=== PATIENT | male | born 1995 | race Caucasian/White ===

== ENCOUNTER 2017-03-22 23:05 | Emergency (ER) | payer BC, MEDICAID ==
[~2017-03-22] VITALS: Ht 172.7 cm; Wt 61.2 kg
[2017-03-22] MEDS ORDERED: REMICADE10 MG IV (23:11)
[2017-03-22] MEDS ORDERED: Hydrogen Peroxide 473ml Bottle TOPIC ONE ×2 (23:17→23:30)
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
[2017-03-22 23:20] VITALS: BP 138/94
[2017-03-23 00:06] VITALS: BP 138/94
[2017-03-23] MEDS ORDERED: Bacitracin Oint UD TOPIC ONE ×3 (00:15)
--- NOTE | 2017-03-23 16:26 | Diagnostic Imaging Report ---
Indication: TRAUMA, pain, possible foreign body Technique: 3 views left hand Comparison: none Findings: No acute fractures. No dislocations. Joint spaces are preserved. Impression: Negative This agrees with the preliminary interpretation provided by the emergency room physician
== END 2017-03-23 00:06 | disposition home or self-care (01) ==
LOC: EMR 23:22
DX: S61.432A Puncture wound without foreign body of left hand, initial encounter (principal); W25.XXXA Contact with sharp glass, initial encounter; Y92.009 Unspecified place in unspecified non-institutional (private) residence as the place of occurrence of the external cause
CPT/HCPCS: 99283

== ENCOUNTER 2017-07-14 14:42 | Emergency (ER) | payer BC, MEDICAID ==
[~2017-07-14] VITALS: Ht 172.7 cm; Wt 61.2 kg
[~2017-07-14 14:42] MED LIST: REMICADE10 MG IV
[2017-07-14] MEDS ORDERED: HYDROcodone/Acetamin 7.5/325 tab ORAL ONE (15:00)
--- NOTE | 2017-07-14 15:19 | Emergency Room Report ---
History of Present Illness General Chief Complaint: Lower Extremity Injury Source: Patient, Medical Record Present Illness HPI 21-year-old male presents to the emergency department complaining of 6 out of 10 in severity right localized knee pain to the anterior aspect since yesterday. Patient reports that he knocked his knee into another player's knee while playing basketball. Patient reports pain with flexion of the knee and weightbearing. He denies previous injury to this extremity he reports some swelling. Patient reports that he attempted to use some tumor echo without any relief. Denies numbness tingling or loss of sensation or gross motor movements of the extremities, incontinence of bowel or bladder. Denies CP, Palpitations, LOC, AMS, dizziness, Changes in Vision, Sensation, paresthesias, or a sudden severe headache. Allergies: Coded Allergies: No Known Allergies (Unverified , 03/22/17) Patient History Past Medical History: see triage record Past Surgical History: none Pertinent Family History: none Reviewed Nursing Documentation: PMH: Agreed, PSxH: Agreed Nursing Documentation-PMH Past Medical History: No History, Except For Hx Gastrointestinal Problems: Yes - Crohns Review of Systems All Other Systems: negative except mentioned in HPI Physical Exam Vital Signs Date Time Temp Pulse Resp B/P (MAP) Pulse Ox O2 Delivery O2 Flow Rate FiO2 07/14/17 14:46 98.0 87 15 129/68 96 Room Air 98.1 Sp02 EP Interpretation: reviewed, normal General Appearance: alert, GCS 15, non-toxic, mild distress Head: normocephalic, atraumatic ENT: hearing grossly normal, normal voice Neck: full range of motion Respiratory: lungs clear, normal breath sounds, speaking full sentences Cardiovascular #1: regular rate, rhythm, no edema, normal capillary refill Musculoskeletal: back normal, normal range of motion, other - compensatory gait , tender - TTP to the anterior right knee, no obvious deformity, no increased laxity of the joint, negative anterior drawer sign. mild anterior swelling. FROM , no clicking. Neurologic: alert, oriented x3, responsive, motor strength/tone normal, sensory intact, speech normal, grossly normal Psychiatric: judgement/insight normal Skin: normal color, no rash, warm/dry, well hydrated Medical Decision Making PA Attestation Dr. Langford is my supervising Physician whom patient management has been discussed with. Diagnostic Impression: Primary Impression: Contusion of knee, right Qualified Codes: S80.01XA - Contusion of right knee, initial encounter Additional Impression: Knee pain, acute Qualified Codes: M25.561 - Pain in right knee ER Course 21-year-old male presents to the emergency department complaining of 6 out of 10 in severity right localized knee pain to the anterior aspect since yesterday. Patient reports that he knocked his knee into another player's knee while playing basketball. Patient reports pain with flexion of the knee and weightbearing. He denies previous injury to this extremity he reports some swelling. Patient reports that he attempted to use some tumor echo without any relief. Denies numbness tingling or loss of sensation or gross motor movements of the extremities, incontinence of bowel or bladder. Denies CP, Palpitations, LOC, AMS, dizziness, Changes in Vision, Sensation, paresthesias, or a sudden severe headache. Ddx considered but are not limited to Fracture, dislocation, contusion, Sprain/ Strain/Spasm, Ligamental injury just to name a few. Vital signs: are WNL, pt. is afebrile H&PE are most consistent with musculoskeletal injury will perform imaging to r/ o fractures/dislocations. ORDERS: - X-ray Right Knee 3 views - negative for fx, Dislocation, or significant soft tissue injury, per preliminary read in ED, and signed by KORIN Ricks , my supervising physician has reviewed, and agrees with my interpretation. ED INTERVENTIONS: - Akshat wrap applied by microbiology technician. Pt. remains neurovascularly intact. DISCHARGE: At this time pt. is stable for d/c to home. Will provide printed patient care instructions, and any necessary prescriptions. Care plan and follow up instructions have been discussed with the patient prior to discharge. Other X-Ray Diagnostic Results Other X-Ray Diagnostic Results : X-Ray ordered: Right Knee # of Views/Limited Vs Complete: 3 View Indication: Pain EP Interpretation: Yes PA Xray: Interpretation reviewed, by supervising MD Interpretation: no dislocation, no soft tissue swelling, no fractures Impression: No acute disease Electronically Signed by: Catherine Ricks PA-C Last Vital Signs Date Time Temp Pulse Resp B/P (MAP) Pulse Ox O2 Delivery O2 Flow Rate FiO2 07/14/17 14:46 98.0 87 15 129/68 96 Room Air 98.1 Disposition: HOME, SELF-CARE Condition: Stable Scripts Acetaminophen* (TYLENOL EXTRA STRENGTH*) 500 Mg Tablet 500 MG ORAL Q6H, #20 TAB 0 Refills Prov: Catherine Ricks 07/14/17 Patient Instructions: Knee Sprain Additional Instructions: Take medications as directed. Follow up with a Primary Care Provider in 3-5 days, even if your symptoms have resolved. --Please review list of primary care clinics, if you do not already have a primary care provider Return sooner to ED if new symptoms occur, or current symptoms become worse. - Please note that this Emergency Department Report was dictated using [employer] mixing machine operator technology software, occasionally this can lead to erroneous entry secondary to interpretation by the dictation equipment. Catherine Ricks Jul 14, 2017 15:19
[2017-07-14] MEDS ORDERED: TYLENOL EXTRA500 MG ORAL (15:21)
[2017-07-14 15:29] VITALS: BP 129/68
--- NOTE | 2017-07-14 15:50 | Diagnostic Imaging Report ---
Indications: Reason For Exam: PAIN Technique: Three views of the right knee Comparison: None Findings: No acute fractures. No dislocations. Joint spaces are preserved. No radiopaque foreign body. Normal mineralization. Impression: No acute process
== END 2017-07-14 16:00 | disposition home or self-care (01) ==
LOC: EMR 16:00
DX: S80.01XA Contusion of right knee, initial encounter (principal); W51.XXXA Accidental striking against or bumped into by another person, initial encounter; Y93.67 Activity, basketball; Y92.89 Other specified places as the place of occurrence of the external cause
CPT/HCPCS: 99283

== ENCOUNTER 2017-07-28 15:07 | Emergency (ER) | payer BC, MEDICAID ==
[~2017-07-28] VITALS: Ht 172.7 cm; Wt 61.2 kg
[~2017-07-28 15:07] MED LIST changes: +TYLENOL EXTRA500 MG ORAL
[2017-07-28] MEDS ORDERED: IBUPROFEN600 MG ORAL (16:20)
[2017-07-28 16:54] VITALS: BP 99/61
--- NOTE | 2017-07-28 17:05 | Emergency Room Report ---
History of Present Illness General Chief Complaint: Lower Extremity Injury Source: Patient, Medical Record Present Illness HPI 21-year-old male presents ED complaining of right ankle pain and swelling. States he rolled his ankle yesterday while playing basketball. Denies any other injuries. Patient states pain is throbbing, 9 out of 10, nonradiating. Unable to bear weight. No other aggravating relieving factors. Denies any other associated symptoms Allergies: Coded Allergies: No Known Allergies (Unverified , 03/22/17) Patient History Past Medical History: none Past Surgical History: none Pertinent Family History: none Social History: Denies: smoking, alcohol use, drug use Immunizations: UTD Reviewed Nursing Documentation: PMH: Agreed; PSxH: Agreed Nursing Documentation-PMH Past Medical History: No History, Except For Hx Gastrointestinal Problems: Yes - Crohns Review of Systems All Other Systems: negative except mentioned in HPI Physical Exam Vital Signs Date Time Temp Pulse Resp B/P (MAP) Pulse Ox O2 Delivery O2 Flow Rate FiO2 07/28/17 15:13 97.8 86 16 120/75 95 Room Air 97.9 Sp02 EP Interpretation: reviewed, normal General Appearance: no apparent distress, alert, GCS 15, non-toxic Head: normocephalic Eyes: bilateral eye normal inspection, bilateral eye PERRL ENT: normal ENT inspection Neck: normal inspection Respiratory: normal inspection Cardiovascular #1: normal inspection Gastrointestinal: normal inspection Rectal: deferred Genitourinary: no CVA tenderness Musculoskeletal: tender - R ankle Neurologic: alert, oriented x3, responsive, motor strength/tone normal, sensory intact, speech normal Psychiatric: normal inspection Skin: normal inspection Lymphatic: normal inspection Procedures Splinting Splinting : Consent: Verbal Pre-Made Type: XOCHITL wrap - R ankle Pre-Proc Neuro Vasc Exam: normal Post-Proc Neuro Vasc Exam: normal Patient Tolerated: Well Complications: None Medical Decision Making Diagnostic Impression: Primary Impression: Ankle sprain Qualified Codes: S93.401A - Sprain of unspecified ligament of right ankle, initial encounter ER Course Hospital Course 21-year-old M presents to ED complaining of R ankle pain s/p trip and fall Differential diagnoses include: Fracture, dislocation, sprain, contusion Clinical course Patient placed on stretcher. After initial history and physical, I ordered Xrays of R foot/ankle patient declined pain meds Xrays prelim read shows no acute fracture/dislocation. placed in xochitl wrap, given crutches Diagnosis - ankle sprain Stable and discharged to home with prescription for Motrin. apply ice, keep elevated. weight bear as tolerated. Followup with PMD. Return to ED if symptoms recur or worsen Other X-Ray Diagnostic Results Other X-Ray Diagnostic Results #1: X-Ray ordered: R ankle # of Views/Limited Vs Complete: 3 View Indication: Pain EP Interpretation: Yes Interpretation: no dislocation, no soft tissue swelling, no fractures Impression: No acute disease Electronically Signed by: Electronically signed by Jayden Mirza MD Other X-Ray Diagnostic Results #2: X-Ray ordered: R foot # of Views/Limited Vs Complete: 3 View Indication: Pain EP Interpretation: Yes Interpretation: no dislocation, no soft tissue swelling, no fractures Impression: No acute disease Electronically Signed by: Electronically signed by Jayden Mirza MD Last Vital Signs Date Time Temp Pulse Resp B/P (MAP) Pulse Ox O2 Delivery O2 Flow Rate FiO2 07/28/17 16:54 97.9 92 16 99/61 97 Room Air Status: improved Disposition: HOME, SELF-CARE Condition: Stable Scripts Ibuprofen* (MOTRIN*) 600 Mg Tablet 600 MG ORAL Q8H PRN for For Pain, #30 TAB 0 Refills Prov: JAYDEN MIRZA M.D. 07/28/17 Patient Instructions: Ankle Sprain JAYDEN MIRZA M.D. Jul 28, 2017 17:05
--- NOTE | 2017-07-28 18:23 | Diagnostic Imaging Report ---
Indication: Pain status post ports injury Technique: 3 views right foot Comparison: none Findings: No acute fractures. No dislocations. The joint spaces are preserved. Impression: Negative
--- NOTE | 2017-07-28 18:24 | Diagnostic Imaging Report ---
Indication: Pain, sports injury Technique: 3 views of the right ankle Comparison: none Findings: Soft tissue swelling overlies lateral malleolus. No acute fractures. No dislocations. The joint spaces are preserved Impression: Evidence of lateral soft tissue injury No acute bony trauma
== END 2017-07-28 16:40 | disposition home or self-care (01) ==
LOC: EMR 15:56
DX: S93.401A Sprain of unspecified ligament of right ankle, initial encounter (principal); X50.1XXA Overexertion from prolonged static or awkward postures, initial encounter; Y93.67 Activity, basketball; Y92.9 Unspecified place or not applicable
CPT/HCPCS: 99284

== ENCOUNTER 2018-08-16 21:43 | Emergency (ER) | payer BC, MEDICAID ==
[~2018-08-16] VITALS: Ht 172.7 cm; Wt 59.0 kg
[~2018-08-16 21:43] MED LIST changes: +IBUPROFEN600 MG ORAL
[2018-08-16] MEDS ORDERED: NKM (21:50)
[2018-08-16 22:02] VITALS: BP 127/82
--- NOTE | 2018-08-16 22:05 | NUR ---
ER Nurse Note: Pt came from home c/o left lower abd pain. Pt stated 11/14 sharp pain, non radiating. Pt stated pain started 08/14. Bowel sounds heard in all quadrants, last BM 08/16. No n/v/d. Pt a&ox4, VSS, no signs of distress. Pt has hx of crohn's dx. ERMD at pt side; will continue to monitor.
[2018-08-16] MEDS ORDERED: Ketorolac 30mg Inj IV ONE (22:15)
[2018-08-16] MEDS ORDERED: Isovue-300 100ml vial INJ PRN (22:15)
[2018-08-16 22:25] LABS: BASOPHILS % (AUTO) 1.2 % (0.0-2.0); EOSINOPHILS % (AUTO) 2.5 % (0.0-3.0); HEMATOCRIT 43.8 % (42.0-52.0); LYMPHOCYTES % (AUTO) 40.5 % (20.0-45.0); MEAN CORPUSCULAR VOLUME 86 FL (80-99); MONOCYTES % (AUTO) 6.9 % (1.0-10.0); NEUTROPHILS % (AUTO) 48.8 % (45.0-75.0); PLATELET COUNT 370 K/UL (150-450); RED BLOOD COUNT 5.08 M/UL (4.70-6.10); RED CELL DISTRIBUTION WIDTH 10.3 % (11.6-14.8); WHITE BLOOD COUNT 10.5 K/UL (4.8-10.8)
[2018-08-16 22:25] LABS: APPEARANCE,URINE CLEAR; BILIRUBIN, URINE NEGATIVE (NEGATIVE); COLOR,URINE PALE YELLOW; GLUCOSE, URINE (UA) NEGATIVE (NEGATIVE); KETONES,URINE NEGATIVE (NEGATIVE); LEUKOCYTE ESTERASE ,URINE NEGATIVE (NEGATIVE); NITRITE,URINE NEGATIVE (NEGATIVE); PH,URINE 6.5 (4.5-8.0); PROTEIN,URINE NEGATIVE (NEGATIVE); UROBILINOGEN,URINE NORMAL MG/DL (0.0-1.0)
[2018-08-16 22:36] LABS: ANION GAP 9 mmol/L (5-15); BLOOD UREA NITROGEN 19 mg/dL (7-18); CALCIUM 9.1 MG/DL (8.5-10.1); CARBON DIOXIDE 30 MMOL/L (21-32); CHLORIDE 102 MMOL/L (98-107); CREATININE 0.9 MG/DL (0.55-1.30); POTASSIUM 3.9 MMOL/L (3.5-5.1); SODIUM 141 MMOL/L (136-145)
[2018-08-16 22:39] LABS: ALANINE AMINOTRANSFERASE 26 U/L (12-78); ALBUMIN/GLOBULIN RATIO 0.9 (1.0-2.7); ALKALINE PHOSPHATASE 83 U/L (46-116); ASPARTATE AMINO TRANSFERASE 16 U/L (15-37); BILIRUBIN,TOTAL 0.8 MG/DL (0.2-1.0)
--- NOTE | 2018-08-16 23:38 | NUR ---
ER Nurse Note: Pt left and came back from radiology; JOANA explained results to pt and family member. Pt and family member is aware that pt needs to be admitted but is refusing. Per family member, pt has an appointment at his PMD on Monday08/21/18 and "would rather go there because he has been treated by his PMD for two years". ERMD aware.
[2018-08-16 23:50] VITALS: BP 130/84
--- NOTE | 2018-08-16 23:50 | NUR ---
ER Nurse Note: Pt left AMA. Pt is not medically cleared for discharge by ERMD. ERMD explained the risks and dangers of appendicitis, pt and family member understood and still made the decision to leave against medical advice. Instructed pt to follow up with primary care physcian as soon as possible; [facility] see [facility] now instead of waiting til Monday after discharge. Pt a&ox4, VSS. ID band removed. IV removed; site clean and bandaged. Pt left with all belongings with steady gait via own transportation.
--- NOTE | 2018-08-16 23:55 | Emergency Room Report ---
History of Present Illness General Chief Complaint: Abdominal Pain Source: Patient Present Illness HPI Patient presents with complaints of left mid abdominal pain Reports that he has history of Crohn's disease and receives injections once a month He is somewhat late with his last injection however denies any vomiting denies any diarrhea Patient also complains of a dry hacking cough ongoing for the same. Last 2 days Denies any blood in the stool There is some diffuse nonspecific abdominal discomfort as well however patient mainly holds his left flank left mid abdominal area Denies any dysuria frequency denies any trauma Allergies: Coded Allergies: No Known Allergies (Unverified , 03/22/17) Patient History Past Medical History: see triage record Pertinent Family History: none Reviewed Nursing Documentation: PMH: Agreed; PSxH: Agreed Nursing Documentation-PMH Past Medical History: No History, Except For Hx Gastrointestinal Problems: Yes - Crohns Review of Systems All Other Systems: negative except mentioned in HPI Physical Exam Vital Signs Date Time Temp Pulse Resp B/P (MAP) Pulse Ox O2 Delivery O2 Flow Rate FiO2 08/16/18 21:47 97.5 85 18 127/82 97 Room Air Sp02 EP Interpretation: reviewed, normal General Appearance: well appearing, no apparent distress Head: normocephalic, atraumatic Eyes: bilateral eye PERRL, bilateral eye EOMI ENT: hearing grossly normal, normal pharynx, TMs + canals normal, uvula midline Neck: full range of motion, supple, no meningismus, no bony tend Respiratory: lungs clear, normal breath sounds, no rhonchi, no respiratory distress, no retraction, no accessory muscle use Cardiovascular #1: normal peripheral pulses, regular rate, rhythm, no edema, no gallop, no JVD, no murmur Gastrointestinal: normal bowel sounds, non tender - On palpation however subjectively points to the left upper quadrant left flank region, soft, no mass , no organomegaly, non-distended, no guarding, no hernia, no pulsatile mass, no rebound Genitourinary: no CVA tenderness Musculoskeletal: normal inspection Neurologic: oriented x3, responsive, esthetician and manager medical spa III-XII nml as tested, motor strength/ tone normal, sensory intact Psychiatric: mood/affect normal Skin: normal color, no rash, warm/dry, palpation normal Lymphatic: normal inspection, no adenopathy Medical Decision Making Diagnostic Impression: Primary Impression: AMA ER Course With the history exam and presentation, multiple differentials considered, including but not limited to appendicitis, gastritis, cholecystitis, diverticulitis Given the patient's somewhat diffuse discomfort as well subjectively and the duration of time for the past 2 days Patient also appears somewhat uncomfortable with the discomfort CT imaging was also obtained Radiology reports enlarged appendix and concern for appendicitis Repeat evaluation reveals some discomfort around the periumbilical area continues not show any obvious rebound effect With this patient requires admission further hydration and nothing by mouth status and general surgery consultation Patient's mom has arrived at this time She was here yesterday when the patient's father was admitted with another diagnosis At this time she reports that the patient is followed at [facility] and that she would like to take him there I spent a significant amount of time discussing the emergent diagnosis, that this leads to worsening symptoms and very quickly. Patient himself is awake and alert has full decision-making capacity Patient's mom as well at bedside refusing admission at this time and reporting that they will be driving to [facility] I provided them a copy of the CAT scan report Patient again was urged to stay have observation Gen. surgery will consult however the patient and mom adamantly refusing further care at this time and following to their primary hospital site Labs Test 08/16/18 21:55 08/16/18 22:10 Urine Color Pale yellow Urine Appearance Clear Urine pH 6.5 (4.5-8.0) Urine Specific [place] 1.015 (1.005-1.035) Urine Protein Negative (NEGATIVE) Urine Glucose (UA) Negative (NEGATIVE) Urine Ketones Negative (NEGATIVE) Urine Blood Negative (NEGATIVE) Urine Nitrite Negative (NEGATIVE) Urine Bilirubin Negative (NEGATIVE) Urine Urobilinogen Normal MG/DL (0.0-1.0) Urine Leukocyte Esterase Negative (NEGATIVE) White Blood Count 10.5 K/UL (4.8-10.8) Red Blood Count 5.08 M/UL (4.70-6.10) Hemoglobin 15.0 G/DL (14.2-18.0) Hematocrit 43.8 % (42.0-52.0) Mean Corpuscular Volume 86 FL (80-99) Mean Corpuscular Hemoglobin 29.5 PG (27.0-31.0) Mean Corpuscular Hemoglobin Concent 34.2 G/DL (32.0-36.0) Red Cell Distribution Width 10.3 % (11.6-14.8) Platelet Count 370 K/UL (150-450) Mean Platelet Volume 5.8 FL (6.5-10.1) Neutrophils (%) (Auto) 48.8 % (45.0-75.0) Lymphocytes (%) (Auto) 40.5 % (20.0-45.0) Monocytes (%) (Auto) 6.9 % (1.0-10.0) Eosinophils (%) (Auto) 2.5 % (0.0-3.0) Basophils (%) (Auto) 1.2 % (0.0-2.0) Sodium Level 141 MMOL/L (136-145) Potassium Level 3.9 MMOL/L (3.5-5.1) Chloride Level 102 MMOL/L (98-107) Carbon Dioxide Level 30 MMOL/L (21-32) Anion Gap 9 mmol/L (5-15) Blood Urea Nitrogen 19 mg/dL (7-18) Creatinine 0.9 MG/DL (0.55-1.30) Estimat Glomerular Filtration Rate > 60 mL/min (>60) Glucose Level 94 MG/DL (74-106) Calcium Level 9.1 MG/DL (8.5-10.1) Total Bilirubin 0.8 MG/DL (0.2-1.0) Aspartate Amino Transf (AST/SGOT) 16 U/L (15-37) Alanine Aminotransferase (ALT/SGPT) 26 U/L (12-78) Alkaline Phosphatase 83 U/L (46-116) Total Protein 8.4 G/DL (6.4-8.2) Albumin 4.0 G/DL (3.4-5.0) Globulin 4.4 g/dL Albumin/Globulin Ratio 0.9 (1.0-2.7) Lipase 111 U/L (73-393) CT/MRI/US Diagnostic Results CT/MRI/US Diagnostic Results : Impression CT abdomen pelvisCT ABDOMEN & PELVIS With Contrast: Appendix is dilated to 9 mm. Findings are compatible with acute appendicitis. No bowel obstruction, perforation, or abscess formation. Last Vital Signs Date Time Temp Pulse Resp B/P (MAP) Pulse Ox O2 Delivery O2 Flow Rate FiO2 08/16/18 23:18 97.5 08/16/18 22:02 80 18 127/82 97 Room Air Status: unchanged Disposition: AGAINST MEDICAL ADVICE Condition: Critical Referrals: NON PHYSICIAN (PCP) Patient Instructions: Appendicitis, [id number] Additional Instructions: The Ct that you took here is interpreted by radiology as concerning for acute appendicitis. This is a medical emergency. You require admission to the hospital, consultation with general surgeon is required. And treatment for this diagnosis is emergency surgery . Leaving at this time will lead to worsening symptoms and . We have urged you to stay but cannot keep you against your will. You have also mentioned that you will also be going to another hospital. Reported [facility] where you are following for your Crohn's disease Jannet Andino DO Aug 16, 2018 23:55
--- NOTE | 2018-08-17 08:47 | Diagnostic Imaging Report ---
Indication: Cough Technique: One view of the chest Comparison: none Findings: Lungs and pleural spaces are clear. Heart size is normal Impression: No acute process
--- NOTE | 2018-08-17 10:21 | Diagnostic Imaging Report ---
Clinical Indication: Left lower abdominal pain. History of Crohn's disease Technique: No oral contrast utilized, per emergency room physician request IV administration nonionic contrast. Venous phase spiral acquisition obtained through the abdomen and pelvis. Multiplanar reconstructions were generated. Total dose length product 551.51 mGycm. CTDIvol(s) 10.62 mGy. Dose reduction achieved using automated exposure control Comparison: none Findings: The appendix is dilated and fluid-filled, measuring 11 mm in diameter, with some wall enhancement. No definite surrounding inflammatory change. No associated extraluminal gas or fluid demonstrated. No evidence of diverticulosis or diverticulitis. No small bowel distention. No free or loculated intraperitoneal gas or fluid is evident. The distal esophagus, stomach, duodenum are unremarkable. The liver is unremarkable. The gallbladder is nondistended. The bile ducts and pancreas are unremarkable. The spleen is upper limits normal in size. The adrenals and kidneys are unremarkable. No retroperitoneal or mesenteric mass or adenopathy. There is a circumaortic left renal vein incidentally noted. No pelvic mass or adenopathy. The included lung bases are clear. The bones are unremarkable. Impression: Enlarged appendix, suspicious for acute appendicitis, uncomplicated. No other acute or significant abnormality This agrees with the preliminary interpretation provided overnight by [facility] teleradiology service. The CT scanner at [facility] is accredited by the [employer] and the scans are performed using protocols designed to limit radiation exposure to as low as reasonably achievable to attain images of sufficient resolution adequate for diagnostic evaluation.
== END 2018-08-16 23:50 | disposition left against medical advice (07) ==
LOC: EMR 22:08
DX: R10.9 Unspecified abdominal pain (principal); Z87.19 Personal history of other diseases of the digestive system
CPT/HCPCS: 36415; 71045; 74177; 80053; 81003; 83690; 85025; 96361; 96374; 99285; J1885; Q9967